=== PATIENT | female | born 1955 | race Caucasian/White ===

== ENCOUNTER 2020-08-13 00:53 | Observation (INO) ==
[2020-08-13] MEDS ORDERED: Naloxone 0.4 MG/ML INJ IVP PRN (05:10)
[2020-08-13 06:20] LABS: Basophils % 0.2 %; Hemoglobin 11.9 g/dL (11.5-15.4); Immature Granulocytes % 0.7 % (0-4); Lymphocytes # 0.1 K/mcL (0.6-4.6); Mean Corpuscular HGB Conc 32.2 g/dL (31.6-35.5); Mean Corpuscular Hemoglobin 32.1 pg (28.0-33.3); Mean Corpuscular Volume 99.7 fL (83.0-100.0); Mean Platelet Volume 9.5 fL (9.4-12.4); Monocytes # 0.1 K/mcL (0.0-1.3); Monocytes % 2.7 %; Neutrophils # 4.1 K/mcL (1.6-8.9); Platelet Count 142 K/mcL (140-400); Red Blood Count 3.71 M/mcL (3.82-4.97); Red Cell Distribution Width 12.5 % (11.5-14.5); Segmented Neutrophils % 93.4 %; White Blood Count 4.4 K/mcL (4.3-11.1)
[2020-08-13 06:42] LABS: Alanine Aminotransferase 20 Units/L (7-52); Albumin 4.3 g/dL (3.5-5.7); Albumin/Globulin Ratio 1.9 (1.1-2.2); Alkaline Phosphatase 30 Units/L (34-104); Aspartate Amino Transferase 21 Units/L (13-39); BUN/Creatinine Ratio 20 (6-26); Bilirubin,Total 0.3 mg/dL (0.3-1.0); Blood Urea Nitrogen 18 mg/dL (8-23); Calcium 9.3 mg/dL (8.6-10.3); Carbon Dioxide 30 mEq/L (23-29); Chloride 101 mEq/L (98-107); Globulin 2.3 g/dL (2.4-3.5); Glucose 162 mg/dL (70-105); Magnesium 1.9 mg/dL (1.6-2.6); Osmolality,Calculated 291 (280-300); Phosphorous 4.1 mg/dL (2.7-4.5); Potassium 4.3 mEq/L (3.5-5.1); Sodium 138 mEq/L (136-145); Total Protein 6.6 g/dL (6.4-8.9); Troponin I < 0.03 ng/mL (< 0.04); eGFR For African Americans > 60 (> 60); eGFR For Non-African Americans > 60 (> 60)
[2020-08-13 07:09] LABS: Platelet Estimate Normal (Normal)
[2020-08-13] MEDS ORDERED: Ondansetron 4 MG/2 ML VIAL IVP PRN (07:59)
[2020-08-13] MEDS ORDERED: Acetaminophen 325 MG TABLET PO PRN (07:59)
[2020-08-13] MEDS ORDERED: *HR* Enoxaparin 40 MG/0.4 ML SYRINGE SQ ONE (08:02)
[2020-08-13] MEDS ORDERED: Gabapentin 300 MG CAPSULE PO SCH (09:00)
[2020-08-13] MEDS ORDERED: clonazePAM 0.5 MG TABLET PO SCH (09:00)
[2020-08-13] MEDS: *HR* Acetylcysteine 20% 600 MG/3 ML ORAL SYRINGE PO SCH ×2 (10:10→21:25)
[2020-08-13] MEDS: lisinopriL 5 MG TABLET PO SCH (10:10)
[2020-08-13] MEDS: Azithromycin 250 MG TABLET PO SCH (10:10)
[2020-08-13] MEDS: Famotidine 20 MG TABLET PO SCH ×2 (10:10→21:24)
[2020-08-13] MEDS: Furosemide 20 MG/2 ML VIAL IVP SCH (10:11)
[2020-08-13] MEDS: Dexamethasone 4 MG/ML VIAL IVP SCH (10:12)
[2020-08-13] MEDS: Gabapentin 100 MG CAPSULE PO SCH ×2 (14:56→21:25)
[2020-08-13] MEDS ORDERED: rOPINIRole 1 MG TABLET PO SCH (21:00)
[2020-08-13] MEDS ORDERED: Ipratropium 1 PUFF INHALER IH PRN (22:14)
[2020-08-13] MEDS: Budesonide/Formoterol 80/4.5 1 PUFF INH IH SCH (22:29)
[2020-08-14] MEDS ORDERED: *HR* Enoxaparin 40 MG/0.4 ML SYRINGE SQ SCH (06:00)
[2020-08-14] MEDS: lisinopriL 5 MG TABLET PO SCH (07:56)
[2020-08-14] MEDS: Gabapentin 100 MG CAPSULE PO SCH (07:56)
[2020-08-14] MEDS: Azithromycin 250 MG TABLET PO SCH (07:56)
[2020-08-14] MEDS: Famotidine 20 MG TABLET PO SCH (07:57)
[2020-08-14] MEDS: Dexamethasone 4 MG/ML VIAL IVP SCH (07:59)
[2020-08-14] MEDS: Furosemide 20 MG/2 ML VIAL IVP SCH (07:59)
[2020-08-14] MEDS: *HR* Acetylcysteine 20% 600 MG/3 ML ORAL SYRINGE PO SCH (08:00)
[2020-08-14 08:34] LABS: Hematocrit 38.8 % (35.3-44.9); Hemoglobin 12.3 g/dL (11.5-15.4); Mean Corpuscular HGB Conc 31.7 g/dL (31.6-35.5); Mean Corpuscular Hemoglobin 31.9 pg (28.0-33.3); Mean Corpuscular Volume 100.8 fL (83.0-100.0); Mean Platelet Volume 9.8 fL (9.4-12.4); Platelet Count 162 K/mcL (140-400); Red Blood Count 3.85 M/mcL (3.82-4.97); Red Cell Distribution Width 12.5 % (11.5-14.5); White Blood Count 6.1 K/mcL (4.3-11.1)
[2020-08-14 08:44] LABS: Prothrombin Time 11.4 Seconds (9.4-12.1)
[2020-08-14 08:59] LABS: BUN/Creatinine Ratio 24 (6-26); Blood Urea Nitrogen 23 mg/dL (8-23); Calcium 9.1 mg/dL (8.6-10.3); Carbon Dioxide 35 mEq/L (23-29); Chloride 99 mEq/L (98-107); Glucose 89 mg/dL (70-105); Osmolality,Calculated 293 (280-300); Potassium 3.5 mEq/L (3.5-5.1); Sodium 140 mEq/L (136-145); eGFR For African Americans > 60 (> 60); eGFR For Non-African Americans 60 (> 60)
[2020-08-14] MEDS: Budesonide/Formoterol 80/4.5 1 PUFF INH IH SCH (10:42)
[2020-08-14 11:57] VITALS: BP 104/68
== END 2020-08-14 14:51 | disposition home or self-care (01) ==
LOC: 2NENU → SUATTDRO 02:51 → 2NENU 23:54
PROVIDERS: ADMIT Internal Medicine; ATTEND Internal Medicine